=== PATIENT | female | born 1960 | race Caucasian/White ===

== ENCOUNTER 2022-09-22 14:26 | Outpatient (CLI) | payer OTHER, SELFPAY ==
--- NOTE | ~2022-09-22 | XR_ITS ---
EXAMINATION: XR chest 2V 09/22/2022 14:48 INDICATION: Cough and fever PROCEDURE: 2 view chest COMPARISON: 11/25/2018 FINDINGS: The lungs are clear. The cardiomediastinal silhouette is within normal limits. There are no pleural effusions. There is no pneumothorax suspected. The lungs are hyperinflated which is cons istent with, but not diagnostic of chronic obstructive pulmonary disease. IMPRESSION: 1: NO ACUTE CARDIOPULMONARY DISEASE. Reviewed, dictated and finalized at location [employer]
--- NOTE | 2022-09-22 14:29 | ED.URI ---
HPI - URI/Sore Throat General Chief Complaint: Upper Respiratory Infection Stated Complaint: shortness of breath, cough, fever Time Seen by Provider: 09/22/22 14:30 Source: patient and RN notes reviewed Related Data Home Medications Medication Instructions Recorded Confirmed multivitamin with minerals-folic tablet PO 03/06/21 09/18/22 acid 0.4 mg tablet (Adult One Daily Multivitamin) ascorbate calcium (vitamin C) 500 500 mg PO DAILY 07/09/22 09/18/22 mg tablet cholecalciferol (vitamin D3) 25 25 mcg PO DAILY 07/09/22 09/18/22 mcg (1,000 unit) capsule Allergies Allergy/AdvReac Type Severity Reaction Status Date / Time No Known Allergies Allergy Verified 09/18/22 15:10 Review of Systems Review of Systems: CONSTITUTIONAL: Denies fever, chills, or sweats. EYES: Denies visual changes, redness, or discharge. ENT: Denies rhinorrhea, congestion, sore throat, or otalgia. CARDIOVASCULAR: Denies chest pain, palpitations, or edema. RESPIRATORY: Denies cough or dyspnea. GASTROINTESTINAL: Denies abdominal pain, nausea, vomiting, or diarrhea. GENITOURINARY: Denies dysuria or hematuria. SKIN: Denies rash or itching. MUSCULOSKELETAL: Denies back pain, joint pain, or myalgia. NEUROLOGIC: Denies headache, numbness, or weakness. PSYCHIATRIC: Denies anxiety or depression. All other systems reviewed are negative, except as documented in HPI. [facility] Past Medical History Medical History History of COVID-19 04/2021 Hx of breast cancer Pulmonary fibrosis Family History Family History Father Family history of Alzheimer's disease Mother Family history of malignant neoplasm of breast in first degree relative, Onset Age: 65 Family history of congestive heart failure Social History Social History (Updated 09/18/22 @ 15:13 by Madhavi Luna MA) Smoking status: Never smoker Alcohol intake: never Substance use: never Substance use type: does not use Lack of Transportation: No Lack of Food: Never True Current Housing: I Have Housing Concerned About Future Housing: No Difficulty Paying Gas/Electric Bills: No Difficulty Paying for Meds: No Currently Unemployed: No Education: Bachelor's Degree Difficulty w/ Childcare or Family Care: No Additional living arrangements comments: Gender identity (if verbalized by the patient): Female Sexual Orientation (if Verbalized by the Patient): Straight or Heterosexual Agree to blood products: Yes Comments At the time of my signature, I reviewed and agree with the nursing past medical, surgical, social, and family history. There is no relevant family history pertinent to the patient complaint. Exam Narrative: GENERAL: This is a well-nourished, well-developed patient, in no apparent distress. HEAD: normocephalic, atraumatic. EYES: PERRL. Sclera clear/white. Vision is grossly intact. EARS: External ears normal, auditory canals clear and without drainage, TMs normal without perforation. Hearing grossly intact. NOSE: External nose normal with no obvious nasal discharge, nares without redness, no rhinorrhea. THROAT: Mucous membranes moist, posterior pharynx clear. NECK: Neck supple, non-tender without lymphadenopathy, masses or thyromegaly. CARDIOVASCULAR: Regular rate and rhythm without murmurs, gallops, or rubs. RESPIRATORY: Clear to auscultation. Breath sounds equal bilaterally. No wheezes, rales, or rhonchi. GASTROINTESTINAL: Abdomen soft, non-tender, nondistended. Bowel sounds are active. No hepato-splenomegaly, or palpable masses. No guarding. SKIN: warm, intact with no suspicious lesions or rash, good texture and turgor. NEURO: awake, alert, and oriented to person, place and time. There were no obvious focal neurologic abnormalities. EXTREMITIES: No clubbing, cyanosis, or edema. No joint tenderness, effusion, or edema noted. No calf tenderne
--- NOTE | 2022-09-22 15:04 | PC.NURSE ---
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
== END 2022-09-22 14:31 ==
LOC: EXPGOSH 14:31 → EXPGOSHRAD 14:31
PROVIDERS: Emergency Provider Nurse Practitioner Family; PCP Nurse Practitioner Family; Visit Provider Nurse Practitioner Family
DX: R05.9 Cough, unspecified (principal); R50.9 Fever, unspecified
CPT/HCPCS: 71046

== ENCOUNTER 2024-12-28 15:49 | Outpatient (CLI) | payer MEDICARE, OTHER, SELFPAY ==
--- NOTE | ~2024-12-28 | CT_ITS ---
Clinical Indication: Lung nodule CT Scan of the Chest with Contrast: Technique: Contiguous sections were acquired throughout the chest after intravenous administration of 75 cc of Omnipaque 350. Dose reduction technique was used on this scan by utilizing automated exposu re control and iterative reconstruction technique. The dose-length product (DLP) was 137.74 mGy-cm. Findings: There is no evidence of any significant mediastinal, hilar or axillary lymphadenopathy. There is no f illing defect in the pulmonary arterial tree to suggest pulmonary embolus. There is no evidence of ao rtic dissection or aneurysm. There is no evidence of pleural or pericardial effusion. There is medial left apical bronchiectasis and scarring. No suspicious pulmonary nodule. Probable mil d chronic atelectasis in the medial right upper lobe as well. Images through the upper abdomen reveal no abnormalities. Impression: Medial biapical chronic atelectasis or postradiation change with medial left apical bronchiectasis. No suspicious pulmonary nodule evident. Reviewed, dictated and finalized at [facility]. Impression: Medial biapical chronic atelectasis or postradiation change with medial left ap ical bronchiectasis. No suspicious pulmonary nodule evident.
[2024-12-28 16:07] LABS: Estimated Glomerular Filt Rate 50
== END 2024-12-28 15:50 | disposition home or self-care (01) ==
LOC: MICIMG 15:53
PROVIDERS: PCP Family Medicine; Visit Provider Family Medicine
DX: R91.1 Solitary pulmonary nodule (principal); J84.10 Pulmonary fibrosis, unspecified
CPT/HCPCS: 71260; Q9967

== ENCOUNTER 2025-09-04 01:11 | Day surgery (SDC) | payer MEDICARE, SELFPAY ==
[2025-08-21 13:13] VITALS: BMI 24.6
[2025-09-04 10:00] VITALS: BP 105/61; PULSE 91; RESP 16; TEMP 36.6; O2SAT 100; BMI 24.7
[2025-09-04] MEDS: LACTATED RINGERS 1,000 ML 150 ML IV CONT (10:13)
--- NOTE | 2025-09-04 10:43 | WPDANESEPPF ---
Anes - Initial Pre Proc Eval Procedure: Operation Date: 09/04/25 11:00 Proposed Procedures p Screening Colonoscopy - Vikram Moscoso MD Date/Time: 09/04/25 10:43 Surgeon: Vikram Moscoso MD Pre Op Diagnosis: Screening Patient Data Age: 64 Gender: F Height: 1.73 m Weight: 73.9 kg Last Vital Signs Temp 97.8 F 09/04/25 10:00 Pulse 91 09/04/25 10:00 Resp 16 09/04/25 10:00 BP 105/61 09/04/25 10:00 Pulse Ox 100 09/04/25 10:00 O2 Del Method Room Air 09/04/25 10:00 Allergies Allergy/AdvReac Type Severity Reaction Status Date / Time No Known Allergies Allergy Verified 09/04/25 10:02 Home Medications ?Medication ?Instructions ?Recorded ?Confirmed ?Type multivitamin with minerals-folic 1 tablet PO DAILY 03/06/21 09/04/25 History acid 0.4 mg tablet (Adult One Daily Multivitamin) ascorbate calcium (vitamin C) 500 500 mg PO DAILY 07/09/22 09/04/25 History mg tablet cholecalciferol (vitamin D3) 25 25 mcg PO DAILY 07/09/22 09/04/25 History mcg (1,000 unit) capsule nebulizer accessories #1 ea 09/22/22 08/06/25 Rx nebulizer and compressor #1 ea 09/22/22 08/06/25 Rx albuterol sulfate 90 mcg/actuation 2 puff inhalation Q4H PRN 12/12/24 08/21/25 Rx aerosol inhaler shortness of breath or wheezing #8.5 grams rosuvastatin 40 mg tablet (Crestor) 40 mg PO QHS #90 tabs 08/13/25 09/04/25 Rx Patient hx anesthesia problems: none Family hx anesthesia problems: none Results Review: All pre-operative results and documents have been reviewed as part of the pre-operative evaluation. [facility] Past Medical History Medical History Dyslipidemia (~12/2024) GERD without esophagitis Prediabetes Pulmonary fibrosis (~1997) History of non-Hodgkin lymphoma (~1996) s/p radiation History of right breast cancer (~2017) s/p b/l mastectomy History of COVID-19 04/2021 Surgical History Surgical History H/O breast reconstruction (~2018) History of bilateral mastectomy (~2016) Family History Family History Father Family history of Alzheimer's disease Mother Family history of malignant neoplasm of breast in first degree relative, Onset Age: 65 Family history of congestive heart failure Social History Social History Social History: Caffeine-coffee/tea Smoking status: Never smoker Alcohol intake: never Substance use: never Substance use type: does not use Lack of Transportation: No Lack of Food: Never True Current Housing: I Have Housing Concerned About Future Housing: No Difficulty Paying Gas/Electric Bills: No Difficulty Paying for Meds: No Currently Unemployed: No Education: Decline to Answer Difficulty w/ Childcare or Family Care: No Living arrangements: with family Additional living arrangements comments: Occupation/Education: retired Gender identity (if verbalized by the patient): Female Sexual Orientation (if Verbalized by the Patient): Straight or Heterosexual Agree to blood products: Yes Anes - Eval Final PreProcedure Day of Procedure 09/04/25 10:43 Patient weight: normal Lungs: normal air movement Airway: Mallampati scale class II Neurological: alert and oriented Last oral intake: >/= 8 hours ASA classification: III Emergent: no Anesthetic plan: proceed Anesthesia type and monitoring: general GIVS and standard monitoring Results Review: All pre-operative results and documents have been reviewed as part of the pre-operative evaluation. 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 Informed Consent: The patient's anesthetic plan and its attendant risks and benefits were discussed with the patient/family/POA. Questions were solicited and answers provided to the satisfaction of the patient/family/POA.
--- NOTE | 2025-09-04 10:47 | PM.HPGS ---
History of Present Illness History of Present Illness Consent: Risks, benefits, and alternatives have been discussed and questions answered. Patient agrees to proceed with procedure. Chief complaint: Screening Narrative: Emma Osborne is a 64 year old female here for screening colonoscopy Review of Systems Review of Systems: All systems reviewed & are unremarkable except as noted in HPI and below PMFSH Past Medical History Medical History Dyslipidemia (~12/2024) GERD without esophagitis Prediabetes Pulmonary fibrosis (~1997) History of non-Hodgkin lymphoma (~1996) s/p radiation History of right breast cancer (~2016) s/p b/l mastectomy History of COVID-19 04/2021 Surgical History Surgical History H/O breast reconstruction (~2017) History of bilateral mastectomy (~2016) Family History Family History Father Family history of Alzheimer's disease Mother Family history of malignant neoplasm of breast in first degree relative, Onset Age: 65 Family history of congestive heart failure Social History Social History Social History: Caffeine-coffee/tea Smoking status: Never smoker Alcohol intake: never Substance use: never Substance use type: does not use Lack of Transportation: No Lack of Food: Never True Current Housing: I Have Housing Concerned About Future Housing: No Difficulty Paying Gas/Electric Bills: No Difficulty Paying for Meds: No Currently Unemployed: No Education: Decline to Answer Difficulty w/ Childcare or Family Care: No Living arrangements: with family Additional living arrangements comments: Occupation/Education: retired Gender identity (if verbalized by the patient): Female Sexual Orientation (if Verbalized by the Patient): Straight or Heterosexual Agree to blood products: Yes Meds Home Medications and Allergies Home Medications ?Medication ?Instructions ?Recorded ?Confirmed ?Type multivitamin with minerals-folic 1 tablet PO DAILY 03/06/21 09/04/25 History acid 0.4 mg tablet (Adult One Daily Multivitamin) ascorbate calcium (vitamin C) 500 500 mg PO DAILY 07/09/22 09/04/25 History mg tablet cholecalciferol (vitamin D3) 25 25 mcg PO DAILY 07/09/22 09/04/25 History mcg (1,000 unit) capsule nebulizer accessories #1 ea 09/22/22 08/06/25 Rx nebulizer and compressor #1 ea 09/22/22 08/06/25 Rx albuterol sulfate 90 mcg/actuation 2 puff inhalation Q4H PRN 12/12/24 08/21/25 Rx aerosol inhaler shortness of breath or wheezing #8.5 grams rosuvastatin 40 mg tablet (Crestor) 40 mg PO QHS #90 tabs 08/13/25 09/04/25 Rx Allergies Allergy/AdvReac Type Severity Reaction Status Date / Time No Known Allergies Allergy Verified 09/04/25 10:02 Vital Signs Vital Signs - 24 hr 09/04/25 10:00 Temperature 97.8 F Pulse Rate 91 Respiratory Rate 16 Blood Pressure 105/61 Pulse Oximetry 100 Oxygen Delivery Room Air Exam Const: General: comfortable and no acute distress HENMT: Face/Nose/Sinus: Normal nares present Resp: Auscultation: clear to auscultation bilaterally Cardio: Rate: regular rate Rhythm: regular rhythm GI: Inspection: non-distended GI Palp: Yes Soft to palpation Skin: General skin exam: normal color Extrem: General: normal to inspection Psych: Mental Status: mental status grossly normal Assessment and Plan Assessment and plan (1) Colon cancer screening: Code(s): Z12.11 - Encounter for screening for malignant neoplasm of colon Status: Inactive Assessment and Plan: colonoscopy
--- NOTE | 2025-09-04 11:00 | S_PTH ---
PATIENT: Emma Osborne LOC: [facility]#:[id number] AGE/SX: 64/F ROOM: RE09/04/[address]: Vikram Moscoso MD : 1960 BED: DIS: 09/04/2025 SPEC #: [id number] RECD: 09/04/25 11:30 STATUS: FAY [place] #: [id number] JAQUELIN: 09/04/25 11:[address]: Vikram Moscoso DEPT: [facility] Surgical RECD BY: Yong Bryant ENTERED: 09/04/25 11:30 SP TYPE: Surgical OTHR DR: Addie Lancaster MD Tissues: A - Colon Polypectomy Procedures: Hematoxylin and Eosin Stain Gross and Microscopic Level 4
[2025-09-04 11:06] VITALS: BP 86/49; PULSE 74; RESP 20; O2SAT 96
[2025-09-04 11:16] VITALS: BP 102/52; PULSE 79; RESP 14; O2SAT 100
[2025-09-04 11:26] VITALS: BP 100/57; PULSE 75; RESP 20; O2SAT 99
== END 2025-09-04 11:42 | disposition home or self-care (01) ==
PROVIDERS: PCP Family Medicine; Referring Provider Family Medicine; Visit Provider Internal Medicine Gastroenterology
PROC: 0DJD8ZZ Inspection of Lower Intestinal Tract, Via Natural or Artificial Opening Endoscopic (ICD-10-PCS; CPT 45378; principal; 2025-09-04 11:00)
DX: Z12.11 Encounter for screening for malignant neoplasm of colon (principal); D12.0 Benign neoplasm of cecum; K64.8 Other hemorrhoids; K57.30 Diverticulosis of large intestine without perforation or abscess without bleeding; E78.5 Hyperlipidemia, unspecified; K21.9 Gastro-esophageal reflux disease without esophagitis; R73.03 Prediabetes; Z79.51 Long term (current) use of inhaled steroids; Z98.890 Other specified postprocedural states; Z90.13 Acquired absence of bilateral breasts and nipples; Z85.72 Personal history of non-Hodgkin lymphomas; Z85.3 Personal history of malignant neoplasm of breast; Z92.3 Personal history of irradiation; Z87.09 Personal history of other diseases of the respiratory system; Z80.3 Family history of malignant neoplasm of breast; Z82.49 Family history of ischemic heart disease and other diseases of the circulatory system
CPT/HCPCS: 45380; 88305; J2003; J2704; J7120